=== PATIENT | male | born 1960 | race Caucasian/White ===

== ENCOUNTER 2023-01-14 12:28 | Emergency (ER) | payer BC | END 2023-01-14 14:12 | disposition home or self-care (01) | LOC: JP.ED 12:28 | DX: K08.89 Other specified disorders of teeth and supporting structures (principal); I10 Essential (primary) hypertension; Z88.0 Allergy status to penicillin; Z88.8 Allergy status to other drugs, medicaments and biological substances | CPT/HCPCS: 70486; 70486-26; 99284 ==